=== PATIENT | female | born 1930 | race Caucasian/White ===

== ENCOUNTER → 2022-03-23 | Emergency (ER) | payer OTHER ==
[~2022-03-23] VITALS: Ht 152.4 cm; Wt 54.4 kg
[2022-03-23 09:56] VITALS: BP_SYST 107
--- NOTE | 2022-03-23 10:01 | NUR ---
PT BIBA FROM [facility] FOR LEFT SHOULDER PAIN S/P TRIP AND FALL LAST NIGHT AT 1900 , UNWITNESSED, NO LOC PER PT. PT HISTORY WITH DEMENTIA, AWAKE, ALERT, ORIENTED TO NAME, PLACE, AND EVENT, DISORIENTED TO TIME AND DATE.
--- NOTE | 2022-03-23 10:43 | NUR ---
DR HECK AT BEDSIDE FOR EXAM
--- NOTE | 2022-03-23 10:52 | NUR ---
PT TO CT SCAN
--- NOTE | 2022-03-23 12:28 | NUR ---
PT AMBULATED TO BATHROOM -STEADY GAIT.
[2022-03-23 12:48] VITALS: BP_SYST 111
--- NOTE | 2022-03-23 14:01 | NUR ---
Pt moved to hallway with monitoring while awaiting BLS return transportation.
--- NOTE | 2022-03-23 14:38 | NUR ---
LYDIA Sheldon spoke to LYDIA Basurto from [facility] regarding pt status. Sb stated that pt will be picked up in 20 minutes,
== END | disposition home or self-care (01) ==
LOC: SED 09:23
DX: S42.292A Other displaced fracture of upper end of left humerus, initial encounter for closed fracture (principal); R51.9 Headache, unspecified; W01.198A Fall on same level from slipping, tripping and stumbling with subsequent striking against other object, initial encounter; Y93.89 Activity, other specified; Y92.89 Other specified places as the place of occurrence of the external cause; Y99.8 Other external cause status
CPT/HCPCS: 70450-TC; 73060-TC; 76376; 99284